=== PATIENT | female | born 1980 | race Caucasian/White ===

== ENCOUNTER 2017-07-03 11:29 | Inpatient (IN) | payer MEDICAID ==
[2017-07-03] MEDS ORDERED: LACTATED RINGER'S 1,000 ML IV (11:36)
[2017-07-03 11:59] LABS: ADD MAN DIFF? NO
[2017-07-03] MEDS ORDERED: METHYLERGONOVINE 0.2 MG INJ IM ×2 (12:00→15:00)
[2017-07-03] MEDS ORDERED: MISOPROSTOL 200 MCG TAB PR ×2 (12:00→15:00)
[2017-07-03] MEDS ORDERED: CARBOPROST 250 MCG INJ IM ×2 (12:00→15:00)
[2017-07-03] MEDS ORDERED: OXYTOCIN 30 UNITS/LR 500 ML IV ×3 (12:00→15:00)
[2017-07-03] MEDS ORDERED: LIDOCAINE 1% (MPF) 30 ML INJ INJ (12:00)
[2017-07-03] MEDS ORDERED: IBUPROFEN 600 MG TAB PO (12:00)
[2017-07-03 12:10] LABS: ABNORMAL IP MESSAGE 1; BASOPHILS % 0.3 % (0.0-2.0); EOSINOPHILS % 0.4 % (0.0-7.0); HEMATOCRIT 30.6 % (37.0-47.0); HEMOGLOBIN 9.5 g/dl (12.0-16.0); LYMPHOCYTES # 1.4 10^3/ul (0.8-2.9); LYMPHOCYTES % 20.5 % (15.0-51.0); MEAN CORPUSCULAR HEMOGLOBIN 22.2 pg (29.0-33.0); MEAN CORPUSCULAR VOLUME 71.5 fl (82.0-101.0); MONOCYTE # 0.4 10^3/ul (0.3-0.9); MONOCYTES % 5.8 % (0.0-11.0); NEUTROPHILS % 72.3 % (39.0-77.0); NUCLEATED RED BLOOD CELLS% 0.3 /100WBC (0.0-0.0); PLATELET COUNT 212 10^3/UL (140-415); RED BLOOD COUNT 4.28 10^6/ul (4.20-5.40); RED CELL DISTRIBUTION WIDTH 16.7 % (11.5-14.5)
[2017-07-03 12:10] LABS: WHITE BLOOD COUNT 6.9 10^3/ul (4.8-10.8)
[2017-07-03 12:20] LABS: INR 0.85; PROTIME 11.7 Sec (11.9-14.9); PT RATIO 0.9
[2017-07-03 12:21] LABS: PARTIAL THROMBOPLASTIN TIME 25.1 Sec (25.0-35.0)
[2017-07-03 12:22] LABS: ALANINE AMINOTRANSFERASE 22 IU/L (13-69); ALBUMIN 3.4 g/dl (3.3-4.9); ALKALINE PHOSPHATASE 278 IU/L (42-121); ANION GAP 17 (8-16); ASPARTATE AMINO TRANSFERASE 18 IU/L (15-46); BILIRUBIN,INDIRECT 0.6 mg/dl (0-1.1); BILIRUBIN,TOTAL 0.6 mg/dl (0.2-1.3); BLOOD UREA NITROGEN 5 mg/dl (7-20); CALCIUM 8.5 mg/dl (8.4-10.2); CARBON DIOXIDE 19 mmol/L (21-31); CHLORIDE 107 mmol/L (97-110); CREATININE 0.57 mg/dl (0.44-1.00); GLUCOSE 93 mg/dl (70-220); POTASSIUM 4.6 mmol/L (3.5-5.1); SODIUM 138 mmol/L (135-144); TOTAL PROTEIN 6.8 g/dl (6.1-8.1); URIC ACID 5.3 mg/dl (3.1-7.9)
[2017-07-03] MEDS: OXYTOCIN 30 UNITS/LR 500 ML IV ×2 (12:29→14:33)
[2017-07-03 12:51] LABS: HEPATITIS B SURFACE ANTIGEN NEGATIVE (NEGATIVE)
[2017-07-03 13:05] LABS: HIV 1&2 ANTIBODY NEGATIVE (NEGATIVE)
[2017-07-03] MEDS ORDERED: OXYCODONE/ASPIRIN (4.88/325) TAB PO (15:00)
[2017-07-03] MEDS ORDERED: ZOLPIDEM 5 MG TAB PO (15:00)
[2017-07-03] MEDS ORDERED: SENNA/DOCUSATE NA (8.6MG/50MG) TAB PO (15:00)
[2017-07-03] MEDS: LANOLIN 7 GM TUBE TOP (16:54)
[2017-07-03] MEDS: WITCH HAZEL/GLYCERIN PAD PR (16:57)
[2017-07-03] MEDS: IBUPROFEN 600 MG TAB PO ×2 (18:10→23:54)
[2017-07-03 19:47] LABS: ADD UMIC YES; UR ASCORBIC ACID NEGATIVE (NEGATIVE); UR BILIRUBIN (Dip) NEGATIVE (NEGATIVE); UR BLOOD (Dip) 2+ mg/dL (NEGATIVE); UR CLARITY CLEAR (CLEAR); UR COLOR YELLOW (YELLOW); UR GLUCOSE (Dip) NEGATIVE (NEGATIVE); UR KETONES (Dip) NEGATIVE (NEGATIVE); UR LEUKOCYTE ESTERASE (Dip) NEGATIVE Leu/ul (NEGATIVE); UR MUCUS FEW /HPF (NONE SEEN); UR NITRITE (Dip) NEGATIVE (NEGATIVE); UR RBC 17 /HPF (0-5); UR SPECIFIC GRAVITY (Dip) 1.014 (1.003-1.030); UR TOTAL PROTEIN (Dip) NEGATIVE (NEGATIVE); UR UROBILINOGEN (Dip) NEGATIVE (NEGATIVE); UR WBC 1 /HPF (0-5)
[2017-07-03 20:15] LABS: AMPHETAMINE/METHAMPHETAMINE Negative (NEGATIVE); BARBITURATES Negative (NEGATIVE); BENZODIAZEPINES Negative (NEGATIVE); CANNABINOIDS Negative (NEGATIVE); COCAINE Negative (NEGATIVE); OPIATES Negative (NEGATIVE)
[2017-07-03] MEDS: SENNA/DOCUSATE NA (8.6MG/50MG) TAB PO (21:19)
[2017-07-03 22:26] LABS: RAPID PLASMA REAGIN NONREACTIVE (NR)
[2017-07-04] MEDS: IBUPROFEN 600 MG TAB PO ×3 (05:36→18:09)
[2017-07-04] MEDS: SENNA/DOCUSATE NA (8.6MG/50MG) TAB PO ×2 (08:48→21:33)
[2017-07-04 08:56] LABS: ADD MAN DIFF? NO
[2017-07-04 09:02] LABS: ABNORMAL IP MESSAGE 1; BASOPHIL # 0.1 10^3/ul (0.0-0.1); BASOPHILS % 0.4 % (0.0-2.0); EOSINOPHILS # 0.2 10^3/ul (0.0-0.5); EOSINOPHILS % 1.8 % (0.0-7.0); HEMATOCRIT 26.7 % (37.0-47.0); HEMOGLOBIN 8.3 g/dl (12.0-16.0); LYMPHOCYTES # 3.7 10^3/ul (0.8-2.9); MEAN CORPUSCULAR HEMOGLOBIN 22.4 pg (29.0-33.0); MEAN CORPUSCULAR HGB CONC 31.1 g/dl (32.0-37.0); MONOCYTE # 0.7 10^3/ul (0.3-0.9); MONOCYTES % 6.6 % (0.0-11.0); NEUTROPHIL # 6.5 10^3/ul (1.6-7.5); NEUTROPHILS % 57.6 % (39.0-77.0); NUCLEATED RED BLOOD CELLS% 0.2 /100WBC (0.0-0.0); PLATELET COUNT 172 10^3/UL (140-415); RED BLOOD COUNT 3.71 10^6/ul (4.20-5.40); RED CELL DISTRIBUTION WIDTH 16.8 % (11.5-14.5)
[2017-07-04 09:02] LABS: WHITE BLOOD COUNT 11.3 10^3/ul (4.8-10.8)
[2017-07-04 09:14] LABS: POSITIVE DIFF @See below
[2017-07-05] MEDS: IBUPROFEN 600 MG TAB PO ×3 (01:01→12:00)
[2017-07-05] MEDS: DIPHTH/TET/ACEL PERTUSS (ADULT) 0.5 ML VIAL IM* (08:28)
[2017-07-05] MEDS: SENNA/DOCUSATE NA (8.6MG/50MG) TAB PO (08:28)
[2017-07-05 12:01] LABS: RUBELLA ANTIBODY - IGG 5.02 index; RUBELLA ANTIBODY - IGM <20.00 AU/mL
== END 2017-07-05 15:00 | disposition home or self-care (01) | DRG 775 ==
LOC: OBT 11:29 → L-D 11:33 → PP1 14:26
PROC: 10E0XZZ Delivery of Products of Conception, External Approach (ICD-10-PCS; principal; 2017-07-03)
DX: O80 Encounter for full-term uncomplicated delivery (principal); Z37.0 Single live birth; Z3A.38 38 weeks gestation of pregnancy
CPT/HCPCS: 59414; 80053; 80307; 81001; 84560; 85025; 85610; 85730; 86592; 86703; 86762; 86900; 86901; 87340; 90715